=== PATIENT | male | born 1970 | race African-American/Black ===

== ENCOUNTER 2017-05-12 17:40 | Emergency (ER) | payer OTHER ==
[~2017-05-12] VITALS: Ht 167.6 cm; Wt 72.6 kg
[2017-05-12 17:49] VITALS: BP 141/85
[2017-05-12] MEDS ORDERED: IBUPROFEN 600 MG TABLET PO ONE (18:30)
[2017-05-12] MEDS ORDERED: ACETAMINOPHEN 650 MG/20.3 ML UDC PO ONE (20:00)
--- NOTE | 2017-05-12 20:25 | NUR ---
U/S TECH AT BEDSIDE FOR RLE DUPLEX ULTRASOUND.
--- NOTE | 2017-05-12 20:36 | NUR ---
PER U/S TECH NEGATIVE DVT. PT D/C IN STABLE CONDITION.
== END 2017-05-12 20:38 | disposition home or self-care (01) ==
LOC: ER 17:41
DX: M79.661 Pain in right lower leg (principal); I10 Essential (primary) hypertension
CPT/HCPCS: 93971; 99284; A4606; Z7610